=== PATIENT | male | born 1970 | race Caucasian/White ===

== ENCOUNTER → 2022-04-21 08:24 | Outpatient (CLI) | payer BC, SELFPAY ==
--- NOTE | 2022-04-21 | CA_ITS ---
APPROVED REPORT Exam: Exercise Treadmill Technologist: Camille Goff, Ht: 5 ft 11 in Wt: 195 lbs BSA: 2.09 m2 HR: 79 bpm BP: 167/86 mmHg Medical History Medications: Atorvastatin,,,,, DicyCLOMINE,,,,, BuPROPION,,,,, Allergies: No known drug allergies Cardiac Risk Factors: FHX of CAD, Smoking Stress Test Details Test: Anish, Exercise stress testing was performed using a modified Anish protocol. HR Resting HR: 76 bpm Max Heart Rate (APMHR): 167.848601 bpm Max HR Achieved: 147 bpm Target HR (85% APMHR): 141.801048 bpm % of APMHR: 88.02 Recovery HR: 100 bpm BP Resting BP: 151/94 mmHg Max BP: 199/91 mmHg Recovery BP: 176.0/90.0 mmHg ECG Clinical Exercise duration: 06:01 min Highest Stage Achieved: Exercise capacity: 7.0 METs Stress ECG Conclusion GXT/ 5:21 MYOVIEW PT HAD SOA. NO CP. <1.[address] DEPRESSION Test Summary REST . . . . . . . Sitting REST . . . . . . . Standing REST . . . . . . . Standing REST 08:57 0.0 0.0 76 . 151/ 94 . . Stage 1 01:00 10.0 1.7 102 . . . . Stage 1 02:00 10.0 1.7 115 . . . . Stage 1 03:00 10.0 1.7 120 . 180/ 80 . . Stage 2 01:00 12.0 2.5 130 . . . . Stage 2 02:00 12.0 2.5 142 . . . . Stage 2 03:00 12.0 2.5 147 . 185/ 90 . . Stage 3 00:01 14.0 3.4 147 . . . Stop exercise at 06:01 RECOVERY 01:00 0.0 0.0 132 . . . . RECOVERY 02:00 0.0 0.0 115 . . . . RECOVERY 03:00 0.0 0.0 113 . 199/ 91 . . RECOVERY 04:00 0.0 0.0 103 . 187/107 . . RECOVERY 05:00 0.0 0.0 102 . 176/ 90 . . RECOVERY 05:08 0.0 0.0 105 . 176/ 90 . . Electronically signed by : King Gerber MD 04/24/2022 13:17:47
--- NOTE | 2022-04-21 08:28 | US_ITS ---
FINAL REPORT CLINICAL HISTORY: aaa 2.7 (2018) FINDINGS: ULTRASOUND ABDOMINAL AORTA Limited sonographic images were obtained of the abdomen to evaluate the abdominal aorta and iliac arteries. There is ectasia of the abdominal aorta measuring up to 3.1 cm in greatest dimension. The iliac arteries are within normal limits. IMPRESSION: Ectasias of the abdominal aorta measuring up to 3.1 cm in dimension. Reviewed, Interpreted and Dictated by Miguel Diallo III, MD Transcribed by Daria Nunez Authenticated and [facility]
--- NOTE | 2022-04-21 09:07 | CA_ITS ---
APPROVED REPORT EXAM: Comprehensive 2D, Doppler, and color-flow Echocardiogram Candy Starch Mold Printer: Glendy Edgar RVT Ht: 5 ft 11 in Wt: 195lbs BSA: 2.09 BP: 147/84 mmHg Indications: CP,SOA,FATIGUE,SMOKER 2D Dimensions LVOT 2.07 cm (M/F) 1.5-2.5 LA Volume 39.10 mL LA Volume Index 18.79 mL/m2 (M/F) 16-34 M-Mode Dimensions RVDd 2.55 cm (0.9-2.6) LA Diam 3.56 cm (1.9-4.0) LVDd 3.61 cm (3.5-5.7) Ao Diam 3.28 cm (2.0-3.7) LVDs 2.28 cm (3.5-5.7) IVSd 1.37 cm (0.6-1.1) PWd 1.03 cm (0.6-1.1) EF (Teich) 67.70% FS 36.80% EDV (Teich) 54.80 mL TAPSE 2.37 (<1.7) ESV (Teich) 17.70 mL LV Diastology E Decel Time 233.00 (160-240 msec) E/A Ratio 0.9 MED E' 5.80 (< 7 cm/sec) E'/MED E' Ratio 10.28 (>14) LAT E' 6.50 (<10 cm/sec) E/LAT E' Ratio 9.17 (>14) Aortic Valve AO Peak GR. 3.30 mmHg Mitral Valve MV E Max Keron. 60.00 (40-130 cm/s) MV A Velocity 65.00 (40-130 cm/s) E/A Ratio 0.91 MV Decel. Time 233.00 (160-240 ms) MV PHT 68.00 ms Pulmonary Valve PV Peak Velocity 66.00 (50-150 cm/s) Tricuspid Valve TR P. Velocity 234.00 cm/s RAP Estimate 10.00 mmHg RVSP 32.00 mmHg Left Ventricle Left atrium is mildly enlarged, left ventricle is normal size, mild concentric left ventricular hypertrophy, estimated ejection fraction 55% with no regional wall motion abnormality, grade 1 diastolic dysfunction seen without tissue Doppler evidence of raise left atrial pressure. Right Ventricle Right atrium and right ventricle are normal size and contractility. Aortic Valve Aortic valve is minimally thickened and fibrosed there is no aortic stenosis or aortic insufficiency. Mitral Valve Mitral valve is grossly normal, there is trace mitral regurgitation. Tricuspid Valve Tricuspid valve grossly normal, there is trace tricuspid regurgitation, tricuspid regurgitation jet velocity is inadequate for calculation of the right ventricular systolic pressure. Pulmonic Valve Pulmonic valve is poorly visualized. Great Vessels Aortic root is normal size. Inferior vena cava is normal size with normal inspiratory collapse. Pericardium No significant pericardial effusion noted. Conclusion 1. Mildly enlarged left atrium, normal left ventricular size, mild concentric left ventricular hypertrophy, estimated ejection fraction 55% with no regional wall motion abnormality, grade 1 diastolic dysfunction seen without tissue Doppler evidence of raise left atrial pressure. 2. Trace mitral and tricuspid regurgitation. 3. No significant pericardial effusion. 4. Inferior vena cava normal size with normal inspiratory collapse. Electronically signed by : King Gerber MD 04/21/2022 12:46:42
--- NOTE | 2022-04-21 10:18 | NM_ITS ---
APPROVED REPORT Exam: Nuclear Stress Test Indication: HYPERLIPIDEMIA, TOB USE, FM HX., C.P., SOB., PALPITATIONS, SYNCOPE, FATIGUE Patient Location: Outpatient Stress Tech: [facility] Tech:Anna Lacy ARRT RT (R)(N)(M) Ht: 5 ft 11 in Wt: 194 lbs HR: 79 bpm BP: 167/86 mmHg BSA: 2.08 m2 TID: 0.83 BMI: 27.0 History: HYPERLIPIDEMIA, TOB USE, FM HX., C.P., SOB., PALPITATIONS, SYNCOPE, FATIGUE Procedure: Patient exercised on Anish protocol 6:01 minutes and sec, resting heart rate 79 bpm, resting blood pressure 167/86 mmHg, with exercise maximum heart rate achived was 145 bpm which is 88 % of the maximum predicted heart rate and blood pressure was 185/90 mmHg. Test was stopped due to SOB. Patient denied any complaint of chest pain. Patient has Adequate exercise capacity, achieved 7.0 METs of workload on treadmill, the blood pressure response to exercise was Adequate. Electrocardiogram Still electrocardiogram shows sinus rhythm, with exercise there is less than 1.[address] segment depression noted from the baseline EKG. The EKG portion of the exercise Myoview is negative for ischemia. Cardiac Stress and Resting SPECT Images: Cardiac Stress and Resting SPECT images were obtained using technetium 99m Myoview 32.5 mCi stress and 10.82 mCi at rest. Gated SPECT analysis of segmental wall motion and calculation of the ejection fraction also done. Prone images were also obtained. Cardiac stress and rest SPECT images show uniform myocardial activity without segmental perfusion abnormality, computer derived ejection fraction is 53% with no regional wall motion abnormality, right ventricle is normal size and contractility. Conclusion: 1. The EKG portion of the exercise Myoview is negative for ischemia, patient has adequate exercise capacity achieved 7 METS of workload on treadmill, the blood pressure response to exercise was adequate, there was no exercise-induced chest discomfort. 2. No scintigraphic evidence of reversible ischemia seen, compared right ejection fraction 53% with no regional wall motion abnormality, right ventricle is normal size and contractility. 3. Normal exercise Myoview study. Electronically signed by : King Gerber MD 04/24/2022 13:20:37
== END ==
PROVIDERS: PCP Family Medicine; Visit Provider Nurse Practitioner Family
DX: R07.9 Chest pain, unspecified (principal); I10 Essential (primary) hypertension; I71.4 Abdominal aortic aneurysm, without rupture; K55.1 Chronic vascular disorders of intestine; Z72.0 Tobacco use; Z82.49 Family history of ischemic heart disease and other diseases of the circulatory system; R53.83 Other fatigue
CPT/HCPCS: 76705; 78452; 93017; 93306; A9502

== ENCOUNTER 2024-03-20 19:59 | Emergency (ER) | payer BC, SELFPAY ==
[2024-03-20 20:00] VITALS: BP 177/102; PULSE 76; RESP 20; TEMP 36.6; O2SAT 98; BMI 27.4
--- NOTE | 2024-03-20 20:06 | CT_ITS ---
PROCEDURE INFORMATION: Exam: CT Abdomen And Pelvis With Contrast Exam date and time: 03/20/2024 8:47 PM Age: 53 years old Clinical indication: Abdominal pain; Additional info: L flank pain, prev stones TECHNIQUE: Imaging protocol: Computed tomography of the abdomen and pelvis with contrast. Radiation optimization: All CT scans at this facility use at least one of these dose optimization techniques: automated exposure control; mA and/or kV adjustment per patient size (includes targeted exams where dose is matched to clinical indication); or iterative reconstruction. Contrast material: ISOVUE; Contrast volume: 75 ml; Contrast route: IV; COMPARISON: ABDPELWO CT abdomen pelvis wo con 09/10/2018 5:27 AM FINDINGS: Lungs: Dependent bilateral lung base opacities favor atelectasis. Liver: There is diffuse hypoattenuation of the liver compatible with mild hepatic steatosis. Gallbladder and bile ducts: There are surgical clips within the gallbladder fossa. Pancreas: Normal. No ductal dilation. Spleen: Multiple benign-appearing calcific densities of the spleen. Adrenal glands: Normal. No mass. Kidneys and ureters: Left proximal ureteral calcific density compatible with ureterolith is related to mild left hydronephrosis and hydroureter and measures up to 5 mm. Stomach and bowel: Unremarkable. No obstruction. No mucosal thickening. Appendix: No evidence of appendicitis. Intraperitoneal space: Unremarkable. No free air. No significant fluid collection. Vasculature: Moderate calcific atherosclerotic disease of the abdominal aorta without aneurysmal dilatation is present. Lymph nodes: Unremarkable. No enlarged lymph nodes. Urinary bladder: Unremarkable as visualized. Reproductive: Unremarkable as visualized. Bones/joints: Right femur IM nail fixation with metal artifact that partially obscures areas evaluation of the proximal right femur. Moderate loss of intervertebral disc space with degenerative changes at L4 through S1. Soft tissues: Normal. IMPRESSION: Mild left hydronephrosis and hydroureter related to left proximal ureterolith as described above.
--- NOTE | 2024-03-20 20:07 | HMH.EDGENADL ---
Discharge Plan Disposition Patient Disposition: Home, Self-Care Prescriptions Prescriptions: New ondansetron 4 mg tablet,disintegrating 4 mg PO Q8H PRN (Reason: nausea and vomiting) 4 Days Qty: 12 0RF tamsulosin 0.4 mg capsule 0.4 mg PO DAILY Qty: 14 0RF hydrocodone-acetaminophen 5-325 mg tablet 1 tab PO Q8H Qty: 12 0RF No Action omeprazole 20 mg capsule,delayed release(DR/EC) 20 mg PO DAILY Patient Comments: TAKE ONE CAPSULE BY MOUTH EVERY MORNING BEFORE MEAL atorvastatin 40 mg tablet 40 mg PO DAILY bupropion HCl 150 mg tablet extended release 24 hr 150 mg PO DAILY Patient Comments: TAKE 1 TABLET BY MOUTH EVERY DAY TO IMPROVE MOOD dicyclomine 10 mg capsule 10 mg PO BID valsartan 80 mg tablet 80 mg PO DAILY Qty: 90 3RF aspirin [Adult Low Dose Aspirin] 81 mg tablet,delayed release (DR/EC) 81 mg PO DAILY Qty: 30 5RF sildenafil (pulm.hypertension) 20 mg tablet 20 mg PO DAILY PRN Patient Comments: TAKE 3 TO 5 TABLETS BY MOUTH EVERY DAY SEXUAL ACTIVITY NEEDED Referrals Follow up/Referrals: Ananth Valdez [Primary Care Provider] - See instructions Activity Restrictions/Add. Instructions Additional Instructions/Restrictions: At this time it was felt you are safe to be discharged home. If new or worsening symptoms please do not hesitate to return the emergency department. Please follow-up with your family doctor soon as you are able for referral to urology for your 5 mm left sided ureteral stone. Please take ibuprofen 600 mg every 6 hours, acetaminophen 650 mg every 6 hours and if needed your hydrocodone/acetaminophen every 8 hours as prescribed. Clinical Impressions Clinical Impression: Ureterolithiasis Instructions Patient Instructions: DI for Acute Abdominal Pain Discharge ED Provider: Tucker Babin General Adult HPI General Chief complaint: Abdominal Pain Stated complaint: back pain, poss kidney stone Time Seen by Provider: 03/20/24 20:02 History of Present Illness HPI narrative: Patient is a 53-year-old male with past medical history of previous ureterolithiasis on the right status post basket extraction, lithotripsy who presents emergency department for evaluation of left flank pain. Onset was acute, occurring 6 PM, sharp, paroxysmal, stabbing radiating around his flank into his left paraspinal area. Not particularly modifiable. No other acute complaints at this time. Related Data Home Medications Medication Instructions Recorded Confirmed atorvastatin 40 mg tablet 40 mg PO DAILY 04/06/22 10/26/22 bupropion HCl 150 mg 24 hr tablet, 150 mg PO DAILY 04/06/22 10/26/22 extended release dicyclomine 10 mg capsule 10 mg PO BID 04/06/22 10/26/22 omeprazole 20 mg capsule,delayed 20 mg PO DAILY 04/06/22 10/26/22 release sildenafil (pulm.hypertension) 20 20 mg PO DAILY PRN 04/28/22 10/26/22 mg tablet Previous Rx's Medication Instructions Recorded aspirin 81 mg tablet,delayed 81 mg PO DAILY #30 tabs 10/26/22 release (Adult Low Dose Aspirin) valsartan 80 mg tablet 80 mg PO DAILY #90 tabs 10/26/22 hydrocodone 5 mg-acetaminophen 325 1 tab PO Q8H kidney stone pain #12 03/20/24 mg tablet tabs ondansetron 4 mg disintegrating 4 mg PO Q8H PRN nausea and 03/20/24 tablet vomiting 4 days #12 tabs tamsulosin 0.4 mg capsule 0.4 mg PO DAILY #14 caps 03/20/24 Allergies Allergy/AdvReac Type Severity Reaction Status Date / Time No Known Allergies Allergy Verified 10/26/22 08:20 [facility] Disclaimer: The information contained in this section may have been updated after the patient was seen, as this information can be updated by other users. Medical History (Updated 03/20/24 @ 22:04 by Tucker Babin MD) Diastolic dysfunction Social History Smoking Status: Former smoker tobacco type: cigarettes alcohol intake: never substance use type: denies use current occupational status: other Travel in the last 8 weeks: Inside the [place] ROS Obtained: Yes Systems reviewed as appropriate & no additional complaints except as documented Physical Exam General General appearance: alert and other (Appearing in pain) Head Head exam: atraumatic and normocephalic Eye Eye exam: Present PERRL ENT ENT exam: Present mucous membranes moist Neck Neck exam: Present normal inspection Chest Chest inspection: Present normal inspection and symmetric chest wall rise Respiratory Respiratory exam: Absent respiratory distress Cardiovascular Cardiovascular exam: Present regular rate and normal rhythm Abdominal Exam Abdominal exam: Present soft and other (No CVA tenderness); Absent tenderness Extremities Exam Extremities exam: Present normal inspection Back Exam Back exam: Present normal inspection; Absent tenderness Neurological Exam Neurological exam: Present alert Psychiatric Psychiatric exam: Present normal affect Skin Skin exam: Present warm and dry Medical Decision Making New Inquiry Pt receiving controlled substance: No Vital Signs: 03/20/24 20:00 Temperature 97.9 F Temperature Source Oral Pulse Rate [Left] 76 Respiratory Rate 20 Blood Pressure [Right Arm] 177/102 H Blood Pressure Mean [Right Arm] 127 02 Sat by Pulse Oximetry 98 Oxygen Delivery Method Room Air Lab Data Lab Results 03/20/24 20:00: Urine Color Yellow, Urine Appearance Clear, Urine pH 7.0, Ur Specific Alden 1.020, Urine Protein Negative, Urine Glucose (UA) Negative, Urine Ketones Negative, Urine Blood 3+, Urine Nitrate Negative, Urine Bilirubin Negative, Urine Urobilinogen 1.0, Ur Leukocyte Esterase Negative, Urine RBC Tntc, Urine WBC 3-5, Urine Bacteria 1+ 03/20/24 20:10: WBC 9.6, RBC 4.79, Hgb 15.1, Hct 46.3, MCV 96.5 H, MCH 31.5 H, MCHC 32.6, RDW 13.5, Plt Count 232, MPV 9.2, Neut % (Auto) 55.3, Lymph % (Auto) 33.7, Hendry % (Auto) 7.5, Eos % (Auto) 2.6, Baso % (Auto) 0.9, Neut # (Auto) 5.3, Lymph # (Auto) 3.2, Hendry # (Auto) 0.7, Eos # (Auto) 0.2, Baso # (Auto) 0.1, Sodium 140, Potassium 3.6, Chloride 107, Carbon Dioxide 28, Anion Gap 8.6, BUN 13, Creatinine 1.10, Estimated Creat Clear 96, Estimated GFR 69, Est GFR ( Amer) 84, Glucose 107 H, Calcium 9.4, Total Bilirubin 1.0, AST 35, ALT 34, Alkaline Phosphatase 112, Total Protein 7.3, Albumin 4.3, Globulin 3.0, Albumin/Globulin Ratio 1.4, Lipase 73 03/20/24 20:10 03/20/24 20:10 Orders (Tests/Meds): ED MEDICATIONS Generic Name Dose Route Start Last Admin Trade Name Freq PRN Reason Stop Dose Admin Sodium Chloride 10 ml 03/20/24 20:51 03/20/24 20:52 Sodium Chloride 0.9% 10ml Syr (Rad Only) IV 04/19/24 20:50 10 ml NEEDED PRN Administration Maintain IV Site Discontinued Medications Generic Name Dose Route Start Last Admin Trade Name Elliot PRN Reason Stop Dose Admin Acetaminophen 1,000 mg 03/20/24 20:06 03/20/24 20:25 Acetaminophen 500mg Tab PO 03/20/24 20:07 1,000 mg ONCE ONE Administration Lactated Ringer's 1,000 mls @ 999 mls/hr 03/20/24 20:06 03/20/24 20:25 Lactated Ringer's 1000 Ml Bag IV 03/20/24 21:06 999 mls/hr .Q1H1M ONE Administration Iopamidol 75 ml 03/20/24 20:51 03/20/24 20:52 Iopamidol-370 (76%);100ml Bottle IV 03/20/24 20:52 75 ml ONCE ONE Administration Ketorolac Tromethamine 30 mg 03/20/24 20:06 03/20/24 20:25 Ketorolac 30mg/Ml Vial IV 03/20/24 20:07 30 mg ONCE ONE Administration Morphine Sulfate 4 mg 03/20/24 20:06 03/20/24 20:26 Morphine 4mg/Ml Syringe IV 03/20/24 20:07 4 mg ONCE ONE Administration Ondansetron HCl 4 mg 03/20/24 20:06 03/20/24 20:26 Ondansetron 4mg/2ml Vial IV 03/20/24 20:07 4 mg ONCE ONE Administration ORDERS Category Date Time Status CT abdomen pelvis w con Stat Cat Scan 03/20/24 20:06 Completed CBC w/Auto Diff [Complete Blood Count Auto Diff] Stat Lab 03/20/24 20:10 Completed CMP [Comprehensive Metabolic Panel] Stat Lab 03/20/24 20:10 Completed Lipase Stat Lab 03/20/24 20:10 Completed UA [Urinalysis and Microscopic] Stat Lab 03/20/24 20:00 Completed Medical Decision Narrative: In summary patient is a 53-year-old male past medical history described above presents emergency department for acute onset flank pain. Patient is hemodynamically stable nontoxic-appearing upon arrival, afebrile, appearing in pain. Differential diagnosis includes ureterolithiasis, diverticulitis, kidney pathology, among others. Workup will be conducted with hematologic labs, CT of the abdomen pelvis IV contrast, urinalysis. Initial interventions include crystalloid bolus, Tylenol, Zofran, Toradol, morphine. Workup reviewed by me, hematologic labs show no significant leukocytosis, no HANDY or critical electrolyte abnormality. Urinalysis interpreted by me, hematuria without evidence of significant infection. CT imaging informally visualized by me, left proximal ureterolithiasis. Formal read shows ureterolithiasis 5 mm with mild left hydronephrosis and hydroureter. Upon repeat evaluation patient had acceptable level of pain and given stone size is appropriate for outpatient management at this time will be discharged with course of oxycodone. Critical Care Critical Care Time Critical Care Time: No
[2024-03-20 20:10] LABS: Microscopic, Urine URINE MICROSCOPIC (MICROSCOPIC)
[2024-03-20 20:19] LABS: Appearance,Urine CLEAR (Clear); Bilirubin,Urine Negative (Negative); Blood, Urine 3+ (Negative); Color,Urine YELLOW (Yellow); Glucose,Urine (UA) Negative (Negative); Ketones,Urine Negative (Negative); Leukocyte Esterase,Urine Negative (Negative); Nitrate,Urine Negative (Negative); Protein,Urine Negative (Negative)
[2024-03-20] MEDS: LACTATED RINGERS 1000ML 1,000 ML 999 ML IV (20:25)
[2024-03-20] MEDS: ACETAMINOPHEN 500MG TAB 1000 MG PO (20:25)
[2024-03-20] MEDS: KETOROLAC 30MG/ML VIAL 30 MG IV (20:25)
[2024-03-20] MEDS: ONDANSETRON 4MG/2ML VIAL 4 MG IV (20:26)
[2024-03-20] MEDS: MORPHINE 4MG/ML SYRINGE 4 MG IV (20:26)
[2024-03-20 20:29] LABS: Basophils # 0.1 K/mm3 (0-0.2); Basophils % 0.9 % (0.1-2.0); Eosinophils # 0.2 K/mm3 (0.0-0.4); Eosinophils % 2.6 % (0.1-12.0); Hematocrit 46.3 % (42.0-52.0); Hemoglobin 15.1 g/dL (14.1-18.0); Lymphocytes # 3.2 K/mm3 (0.7-4.5); Lymphocytes % 33.7 % (10-50); Mean Corpuscular HGB Conc 32.6 g/dL (31.8-35.4); Mean Corpuscular Hemoglobin 31.5 pg (27.0-31.2); Mean Corpuscular Volume 96.5 fl (80-94); Mean Platelet Volume 9.2 fl (7.4-10.4); Monocytes # 0.7 K/mm3 (0.1-1.0); Monocytes % 7.5 % (1.7-9.3); Neutrophils # 5.3 K/mm3 (1.8-7.8); Neutrophils % 55.3 % (37.0-80.0); Platelet Count 232 K/mm3 (142-424); Red Blood Count 4.79 M/mm3 (4.60-6.20); Red Cell Distribution Width 13.5 % (11.5-17.5); White Blood Count 9.6 K/mm3 (4.8-10.8)
[2024-03-20 20:30] VITALS: BP 168/86; PULSE 86; O2SAT 96
[2024-03-20 20:38] LABS: Chloride 107 mmol/L (98-107); Potassium 3.6 mmoL/L (3.5-5.1); Sodium 140 mmol/L (136-145)
[2024-03-20 20:41] LABS: Alanine Aminotransferase 34 U/L (12-78); Alkaline Phosphatase 112 U/L (38-126); Anion Gap 8.6 mEq/L (5-15); Aspartate Amino Transferase 35 U/L (17-59); Blood Urea Nitrogen 13 mg/dl (9-20); Calcium 9.4 mg/dl (8.4-10.2); Carbon Dioxide 28 mmol/L (22.0-30.0); Creatinine Clearance Estimated 96 mL/min (50-200); Estimated Glomerular Filt Rate 69 ml/min (>60); GFR (African American) 84 ML/MIN (>60); Glucose 107 mg/dl (74-100); Lipase 73 U/L (23-300)
[2024-03-20 20:42] LABS: Albumin Level 4.3 g/dl (3.5-5.0); Albumin/Globulin Ratio 1.4 (1.1-1.8); Total Protein,Serum 7.3 g/dl (6.3-8.2)
[2024-03-20] MEDS: SODIUM CHLORIDE 0.9% 10ML SYR (RAD ONLY) 10 ML IV (20:52)
[2024-03-20] MEDS: IOPAMIDOL-370 (76%);100ML BOTTLE 75 ML IV (20:52)
[2024-03-20 20:58] LABS: Bacteria,Urine 1+ /lpf; RBC,Urine TNTC #/hpf (0-3)
[2024-03-20 21:00] VITALS: BP 146/84
[2024-03-20 21:30] VITALS: BP 157/92; PULSE 75; O2SAT 95
[2024-03-20 22:00] VITALS: BP 154/94; PULSE 73; O2SAT 95
[2024-03-20] MEDS: OXYCODONE 5MG IMMEDIATE RELEASE TABLET 5 MG PO (22:12)
[2024-03-20] MEDS: ONDANSETRON 4MG ODT 4 MG SL (22:13)
[2024-03-20 22:14] VITALS: BP 154/94; PULSE 73; RESP 16; TEMP 36.6; O2SAT 95
== END 2024-03-20 22:15 | disposition home or self-care (01) ==
PROVIDERS: Emergency Provider Emergency Medicine; PCP Family Medicine
DX: N13.0 Hydronephrosis with ureteropelvic junction obstruction (principal); N13.4 Hydroureter; R10.32 Left lower quadrant pain; M54.59 Other low back pain; Z87.442 Personal history of urinary calculi; Z87.891 Personal history of nicotine dependence
CPT/HCPCS: 74177; 80053; 81001; 83690; 85025; 96361; 96374; 96375; 99285; J2405; Q9967